=== PATIENT | male | born 1970 | race Caucasian/White ===

== ENCOUNTER 2019-11-08 10:27 | Outpatient (CLI) | payer BC, SELFPAY ==
[2019-11-08 11:04] LABS: Basophils Percent Auto 0.4 % (0.2-1.2); Eosinophils Absolute Auto 0.1 K/mm3 (0-0.3); Hemoglobin 14.6 g/dL (14.0-18.0); Immature Granulocyte Absolute 0.01 K/mm3 (0.00-0.031); Immature Granulocyte Percent A 0.2 % (0-0.5); Lymphocytes Absolute Auto 2.35 K/mm3 (0.9-3.2); Lymphocytes Percent Auto 45.7 % (18.3-44.2); Mean Corpuscular Hemoglobin 30.6 pg (26-34); Mean Corpuscular Volume 90.1 fl (80-100); Mean Platelet Volume 11.3 fl (7.4-10.4); Monocytes Absolute Auto 0.5 K/mm3 (0.1-0.6); Monocytes Percent Auto 8.8 % (2.6-8.5); Neutrophils Absolute Auto 2.3 K/mm3 (1.3-6.7); Neutrophils Percent Auto 43.9 % (45.5-73.1); Platelet Count Result 144 k/mm3 (150-375); Red Blood Count 4.77 M/mm3 (4.6-6.20); Red Cell Distribution Width 14.2 % (11.5-14.5); White Blood Count 5.1 K/mm3 (4.5-10.0)
[2019-11-08 11:10] LABS: Add Urine Microscopic? YES; Amorphous Sediment Urine Few; Appearance Urine Cloudy (Clear); Bilirubin Urine Negative (Negative); Blood Urine Negative (Negative); Color Urine Yellow (Yellow); Glucose Urine UA Negative (Negative); Ketones Urine Negative (Negative); Leukocyte Esterase Ur Negative LEU/UL (NEGATIVE); Nitrate Urine Negative (Negative); Protein Urine Negative (Negative); RBC Urine 0-2 /hpf (0-2); Specific Grav Ur 1.019 (1.001-1.035); Urobilinogen Urine Negative mg/dL (<2.0); WBC Urine 0-3 /hpf (0-3)
[2019-11-08 11:22] LABS: Albumin Level 4.2 g/dL (3.5-5.1)
[2019-11-08 11:26] LABS: Alanine Aminotransferase 27 U/L (4-50); Alkaline Phosphatase 65 U/L (38-126); Aspartate Amino Transferase 28 U/L (17-59); Bilirubin,Total 0.6 mg/dL (0.2-1.3); Blood Urea Nitrogen 15 mg/dL (9-20); CRP < 0.5 mg/dL (<1.0); Calcium 9.1 mg/dL (8.4-10.2); Carbon Dioxide 27 mmol/L (22-30); Chloride 99 mmol/L (98-107); Estimated Glomerular Filt Rate > 60; Glucose 96 mg/dL (75-110); HDL Direct 49 mg/dL; Sodium 135 mmol/L (137-145); Triglycerides 372 mg/dL (<150)
[2019-11-08 11:30] LABS: Cholesterol 402 mg/dL (0-200); LDL Cholesterol Direct 52 mg/dL
[2019-11-08 11:48] LABS: Prostate Specific Antigen 1.9 ng/mL (< OR = 4.0); Thyroid Stimulating Hormone 0.689 uIU/mL (0.465-4.680)
[2019-11-08 11:52] LABS: Free T4 Free Thyroxine 1.07 ng/mL (0.78-2.19)
[2019-11-11 03:29] LABS: Homocysteine 9.2 umol/L (<11.4)
== END 2019-11-08 10:28 | disposition home or self-care (01) ==
PROVIDERS: PCP Internal Medicine; Visit Provider Internal Medicine
DX: Z12.5 Encounter for screening for malignant neoplasm of prostate (principal); Z79.899 Other long term (current) drug therapy; E78.5 Hyperlipidemia, unspecified
CPT/HCPCS: 36415; 80053; 80061; 81001; 83090; 84153; 84439; 84443; 85025; 86140

== ENCOUNTER 2020-02-25 14:07 | Outpatient (CLI) | payer BC, SELFPAY ==
[2020-02-25 15:00] LABS: Influenza Control Positive
== END 2020-02-25 14:08 | disposition home or self-care (01) ==
PROVIDERS: PCP Internal Medicine; Visit Provider Internal Medicine
DX: R05 Cough (principal); Z86.19 Personal history of other infectious and parasitic diseases
CPT/HCPCS: 87804

== ENCOUNTER 2020-06-30 09:36 | Outpatient (CLI) | payer BC, SELFPAY ==
--- NOTE | ~2020-06-30 | CT_ITS ---
EXAMINATION: CT chest high resolution wo md DATE: 06/30/2020 09:54 INDICATION: Chronic bronchitis TECHNIQUE: Computed tomography (CT) of the chest was performed without intravenous contrast. The dose -length product was 271.00 mGy-cm. Automated exposure control and iterative reconstruction technique were employed. COMPARISON: None FINDINGS: Heart size normal. Calcified mediastinal lymph nodes, consistent with chronic granulomatous disease. There are calcified granulomas of the spleen. Otherwise, the upper abdomen is unremarkable. No thoracic lymphadenopathy. No significant pleural or pericardial effusion. No focal airspace conso lidation. No endobronchial abnormalities. There is a 2 mm fissural nodule on the right, likely benign , image 70. No pneumothorax. IMPRESSION: 1. No acute cardiopulmonary disease. 2: 2 mm right fissural nodule, likely benign. Reviewed, dictated and finalized at location A.
--- NOTE | ~2020-06-30 | XR_ITS ---
EXAMINATION: XR lumbar spine 2-3V, XR sacroiliac joints min 3V EXAM DATE: 06/30/2020 09:55 INDICATION: No known recent injury provided at this time. Pain of the low back, sacrum. TECHNIQUE: Lumber spine frontal, lateral, lateral L5-S1 projections for interpretation. Sacrum front al and bilateral oblique projections. There are no prior studies for comparison. FINDINGS: There is moderate L5-S1 disc disease with vacuum disc phenomenon and small endplate osteop hytes. The vertebral body and disc heights are otherwise well maintained. Probably 3 mm retrolisthesi s L5 on S1. The vertebral bodies are otherwise aligned. Paraspinal soft tissue is unremarkable. Sacru m, sacroiliac joints, sacral arcuate lines are intact. Sacroiliac joints are symmetric, nonfused, unr emarkable. There is mild lumbar facet arthropathy. IMPRESSION: Moderate L5-S1 disc disease. Mild lumbar facet arthropathy. Reviewed, dictated and finalized at location B. IMPRESSION: Moderate L5-S1 disc disease. Mild lumbar facet arthropathy.
== END 2020-06-30 09:37 | disposition home or self-care (01) ==
PROVIDERS: PCP Internal Medicine; Visit Provider Internal Medicine
DX: M54.5 Low back pain (principal); J40 Bronchitis, not specified as acute or chronic; R06.02 Shortness of breath; M51.87 Other intervertebral disc disorders, lumbosacral region; M47.896 Other spondylosis, lumbar region
CPT/HCPCS: 71250; 72100; 72202

== ENCOUNTER 2020-07-03 08:53 | Outpatient (RCR) | payer BC, SELFPAY | END 2020-10-01 23:59 | disposition home or self-care (01) | LOC: ANHLAB 08:53 | PROVIDERS: PCP Internal Medicine; Visit Provider Internal Medicine | DX: J42 Unspecified chronic bronchitis (principal) | CPT/HCPCS: 87070; 87205 ==

== ENCOUNTER 2020-07-21 00:26 | Outpatient (CLI) | payer BC, SELFPAY ==
[2020-07-21 19:00] LABS: SARS-CoV-2 RNA PCR Negative
== END 2020-07-21 00:27 | disposition home or self-care (01) ==
LOC: ANHCOVIDDT 00:26
PROVIDERS: PCP Internal Medicine; Visit Provider Internal Medicine Gastroenterology
DX: Z01.812 Encounter for preprocedural laboratory examination (principal); Z20.828 Contact with and (suspected) exposure to other viral communicable diseases
CPT/HCPCS: 87635; C9803; U0003

== ENCOUNTER 2020-07-23 00:04 | Day surgery (SDC) | payer BC, SELFPAY ==
[2020-07-16 14:31] VITALS: BMI 27.2
[2020-07-23 06:20] VITALS: BP 126/86; PULSE 66; RESP 15; TEMP 36.3; O2SAT 98
[2020-07-23 06:21] VITALS: BMI 27.0
[2020-07-23] MEDS: LACTATED RINGERS 1,000 ML 150 ML IV CONT (06:32)
--- NOTE | 2020-07-23 06:42 | WPDANESEPPF ---
Anes - Initial Pre Proc Eval Procedure: Operation Date: 07/23/20 07:30 Proposed Procedures p Screening Colonoscopy - Jairo Velazquez MD Date/Time: 07/23/20 06:42 Surgeon: Jairo Velazquez MD Pre Op Diagnosis: neoplasm screening, family hx colon CA Patient Data Age: 49 Gender: M Height: 5 ft 11 in Weight: 87.9 kg Last Vital Signs Temp 36.3 C L 07/23/20 06:20 Pulse 66 07/23/20 06:20 Resp 15 07/23/20 06:20 BP 126/86 07/23/20 06:20 Pulse Ox 98 07/23/20 06:20 Allergies Allergy/AdvReac Type Severity Reaction Status Date / Time No Known Allergies Allergy Verified 07/16/20 14:27 Home Medications Medication Instructions Recorded Confirmed Type coenzyme Q10 100 mg capsule 100 mg PO DAILY 11/08/19 07/23/20 History multivitamin 1 tablet PO DAILY 11/08/19 07/23/20 History terbinafine HCl 250 mg tablet 250 mg PO DAILY 11/08/19 07/23/20 History turmeric 400 mg capsule 400 mg PO DAILY 11/08/19 07/23/20 History omega-3 fatty acids 1,000 mg 1,000 mg PO DAILY 06/12/20 07/23/20 History capsule trazodone 50 mg PO PRN PRN 07/16/20 07/23/20 History Patient hx anesthesia problems: none Family hx anesthesia problems: none PMFSH Past Medical History Medical History Abnormal finding of blood chemistry, unspecified BMI 27.0-27.9,adult Chronic bronchitis Chronic bronchitis Colon cancer screening Encounter for special screening examination for neoplasm of prostate Encounter to establish care FHx: colon cancer Follow up Frequent headaches [place] War syndrome Hyperlipidemia Insomnia Low back pain On group home drug therapy Onychomycosis Right shoulder pain Umbilical hernia Surgical History Surgical History H/O right knee surgery February 2002 H/O shoulder surgery R side Sep 2016 History of prostate surgery Jun 2019 Family History Family History Father Colon cancer metastasized to liver Mother COPD (chronic obstructive pulmonary disease) Arthritis Chronic anemia Social History Social History Smoking status: Never smoker Alcohol intake: current Drinks per week: 5 Substance use: never Substance use type: does not use Living arrangements: with family Spiritual care concerns: No Anes - Eval Final PreProcedure Day of Procedure 07/23/20 06:42 Patient weight: overweight Heart: regular rate and rhythm Lungs: clear to auscultation Airway: Mallampati scale class II Neurological: alert and oriented Last oral intake: >/= 8 hours ASA classification: II Emergent: no Anesthetic plan: proceed Anesthesia type and monitoring: general GIVS and standard monitoring Informed Consent: The patient's anesthetic plan and its attendant risks and benefits were discussed with the patient/family/POA. Questions were solicited and answers provided to the satisfaction of the patient/family/POA.
--- NOTE | 2020-07-23 07:46 | WPDGICN ---
Assessment and Plan Assessment and plan (1) FHx: colon cancer: Code(s): Z80.0 - Family history of malignant neoplasm of digestive organs Status: Acute Assessment and Plan: Patient's father had colon cancer. His brother has had colon polyps. Plan is for surveillance colonoscopy now and also suggested at 5 year intervals in the future. GI Consult Note Consult date/time: 07/23/20 07:46 HPI: Douglas Anna Jr. is a 49 year old male Seen in evaluation at the request of Dr. Corbin jones. Patient has a strong family history of colon cancer. His father had colon cancer, is brother had colon polyps. Patient states that his own weight appetite bowel movements are normal. Weight is stable. He denies any blood in his stools. Bowel habits are normal. He denies abdominal pain. Review of Systems Review of Systems: All systems reviewed & are unremarkable except as noted in HPI and below PMFSH Past Medical History Medical History Abnormal finding of blood chemistry, unspecified BMI 27.0-27.9,adult Chronic bronchitis Chronic bronchitis Colon cancer screening Encounter for special screening examination for neoplasm of prostate Encounter to establish care FHx: colon cancer Follow up Frequent headaches [place] War syndrome Hyperlipidemia Insomnia Low back pain On predatory animal exterminator drug therapy Onychomycosis Right shoulder pain Umbilical hernia Surgical History Surgical History H/O right knee surgery February 2002 H/O shoulder surgery R side Sep 2016 History of prostate surgery Jun 2019 Family History Family History Father Colon cancer metastasized to liver Mother COPD (chronic obstructive pulmonary disease) Arthritis Chronic anemia Social History Social History Smoking status: Never smoker Alcohol intake: current Drinks per week: 5 Substance use: never Substance use type: does not use Living arrangements: with family Spiritual care concerns: No Meds Home Medications and Allergies Home Medications Medication Instructions Recorded Confirmed Type coenzyme Q10 100 mg capsule 100 mg PO DAILY 11/08/19 07/23/20 History multivitamin 1 tablet PO DAILY 11/08/19 07/23/20 History terbinafine HCl 250 mg tablet 250 mg PO DAILY 11/08/19 07/23/20 History turmeric 400 mg capsule 400 mg PO DAILY 11/08/19 07/23/20 History omega-3 fatty acids 1,000 mg 1,000 mg PO DAILY 06/12/20 07/23/20 History capsule trazodone 50 mg PO PRN PRN 07/16/20 07/23/20 History Allergies Allergy/AdvReac Type Severity Reaction Status Date / Time No Known Allergies Allergy Verified 07/16/20 14:27 Vital Signs Vital Signs - 24 hr 07/23/20 06:20 Temperature 97.4 F L Pulse Rate 66 Respiratory Rate 15 Blood Pressure 126/86 Pulse Oximetry 98 Exam Narrative: Exam Narrative: Physical exam reveals patient to be alert. Vital signs stable. HEENT exam unremarkable. Lungs are clear to auscultation and percussion. Heart is without murmur or extra sounds. Abdominal exam bowel sounds are present soft nontender with no organomegaly. Digital external rectal exam normal.
[2020-07-23 07:48] VITALS: BP 104/65; PULSE 56; RESP 18; O2SAT 96
[2020-07-23 07:58] VITALS: BP 118/69; PULSE 54; RESP 16; O2SAT 96
[2020-07-23 08:08] VITALS: BP 128/88; PULSE 50; RESP 15; O2SAT 100
== END 2020-07-23 08:40 | disposition home or self-care (01) ==
PROVIDERS: PCP Internal Medicine; Visit Provider Internal Medicine Gastroenterology
PROC: 0DJD8ZZ Inspection of Lower Intestinal Tract, Via Natural or Artificial Opening Endoscopic (ICD-10-PCS; CPT 45378; principal; 2020-07-23 07:30)
DX: Z12.11 Encounter for screening for malignant neoplasm of colon (principal); D12.5 Benign neoplasm of sigmoid colon; Z80.0 Family history of malignant neoplasm of digestive organs; Z83.71 Family history of colonic polyps; E78.5 Hyperlipidemia, unspecified
CPT/HCPCS: 45385; 88305; J2704; J7120